=== PATIENT | female | born 1995 | race Two or more races ===

== ENCOUNTER 2023-04-09 14:45 | Emergency (ER) | payer OTHER ==
[~2023-04-09] VITALS: Ht 172.7 cm; Wt 83.9 kg
[2023-04-09] MEDS ORDERED: SYNTHROID100 MCG PO (15:40)
[2023-04-09] MEDS ORDERED: PRENA1 CHEW TA1.4 MG PO (15:40)
== END 2023-04-09 19:34 | disposition home or self-care (01) ==
LOC: ER 14:45
DX: R53.81 Other malaise (principal); J06.9 Acute upper respiratory infection, unspecified; Z20.822 Contact with and (suspected) exposure to COVID-19; Z3A.19 19 weeks gestation of pregnancy

== ENCOUNTER 2023-08-21 12:58 | Inpatient (IN) | payer OTHER ==
[~2023-08-21] VITALS: Ht 172.7 cm; Wt 94.8 kg
[~2023-08-21 12:58] MED LIST: PRENA1 CHEW TA1.4 MG PO; SYNTHROID100 MCG PO
[2023-09-07 08:48] LABS: URINE APPEARANCE Clear; URINE BILIRRUBIN Negative (NEGATIVE); URINE BLOOD Negative; URINE COLOR Yellow; URINE GLUCOSE Negative (NEGATIVE); URINE LEUKOCYTE Moderate; URINE NITRATE Negative; URINE PROTEIN Negative (NEGATIVE); URINE UROBILINOGEN 0.2 E.U./dl
[2023-09-07 08:49] LABS: HEMATOCRIT 35.9 % (36.0-45.00); HEMOGLOBIN 12.1 g/dL (12.0-15.00); MEAN CELL VOLUME 82.6 fL (80.00-100.00); MEAN CORPUSCULAR HEMOGLOBIN 27.9 pg (27.00-32.0); MEAN CORPUSCULAR HGB CONC 33.7 g/dl (32.0-36.0); PLATELET COUNT 202 K/uL (150-450); RED BLOOD COUNT 4.35 M/uL (4.00-6.00); RED CELL DISTRIBUTION WIDTH 16.3 % (11.5-14.5)
[2023-09-07 08:52] LABS: URINE EPITHELIAL CELLS 37.5 uL (0.0-38.8); URINE RBC 7.9 uL (0.0-20.8); URINE WBC 162.5 uL (0.0-23.2)
[2023-09-07 09:40] LABS: INR 0.94; PARTIAL THROMBOPLASTIN TIME 28.2 SECONDS (22.0-34.0); PROTHROMBIN TIME 9.9 SECONDS (9.0-11.5)
[2023-09-07 09:50] LABS: ALBUMIN 2.6 gm/dL (3.4-5.0); BILIRUBIN TOTAL 0.8 mg/dL (0.3-1.2); CALCIUM 9.2 mg/dL (8.5-10.1); CREATININE SERUM 0.54 mg/dL (0.55-1.02); GFR 132.56; GLOBULINA 3.8 G/DL (2.4-3.5); POTASSIUM 3.95 mEq/L (3.5-5.1); TOTAL PROTEIN 6.4 gm/dL (6.4-8.2)
[2023-09-07 22:19] LABS: ABG PH 7.204 (7.35-7.45); ABG PO2 10.7 mmHg (80-100); ABG pCO2 59.4 mmHg (35-45)
[2023-09-07 22:20] LABS: BICARBONATE 22.9 mmol/l (23-25); SaO2 7.6 %; Tco2 24.7 mmol/l; o2 21 %
[2023-09-08 04:10] LABS: HEMATOCRIT 33.2 % (36.0-45.00); MEAN CELL VOLUME 82.5 fL (80.00-100.00); MEAN CORPUSCULAR HEMOGLOBIN 27.4 pg (27.00-32.0); MEAN CORPUSCULAR HGB CONC 33.2 g/dl (32.0-36.0); PLATELET COUNT 197 K/uL (150-450); RED BLOOD COUNT 4.03 M/uL (4.00-6.00); RED CELL DISTRIBUTION WIDTH 16.1 % (11.5-14.5)
== END 2023-09-10 18:55 | disposition home or self-care (01) | DRG 788 ==
LOC: LDR 09-07 06:23 → OB/GYN 09-07 20:43
PROVIDERS: ADMIT Specialist; ATTEND Specialist
PROC: 4A1HXCZ Monitoring of Products of Conception, Cardiac Rate, External Approach (ICD-10-PCS; 2023-09-07)
PROC: 10D00Z1 Extraction of Products of Conception, Low, Open Approach (ICD-10-PCS; principal; 2023-09-07 20:45)
DX: O82 Encounter for cesarean delivery without indication (principal); Z3A.39 39 weeks gestation of pregnancy; Z37.0 Single live birth; Z20.822 Contact with and (suspected) exposure to COVID-19